=== PATIENT | female | born 1970 | race Caucasian/White ===

== ENCOUNTER 2019-08-03 06:00 | Emergency (ER) | payer MEDICAID ==
[~2019-08-03] VITALS: Ht 157.5 cm; Wt 75.0 kg
[2019-08-03] MEDS ORDERED: BACITRACIN ZINC OINT UDPKT TOP ONE (06:45)
[2019-08-03] MEDS ORDERED: TETANUS, DIPHTHERIA, PERTUSSIS VAC/PF 0.5ML (>7YR OLD) IM ONE (06:45)
[2019-08-03 07:05] VITALS: BP 142/80
== END 2019-08-03 07:06 | disposition home or self-care (01) ==
LOC: ER 06:00
DX: S60.571A Other superficial bite of hand of right hand, initial encounter (principal); S70.312A Abrasion, left thigh, initial encounter; S70.311A Abrasion, right thigh, initial encounter; W54.0XXA Bitten by dog, initial encounter; Y93.89 Activity, other specified; Y92.018 Other place in single-family (private) house as the place of occurrence of the external cause
CPT/HCPCS: 90471; 90715; 99283